=== PATIENT | female | born 1945 | race Caucasian/White ===

== ENCOUNTER 2017-06-29 03:27 | Emergency (ER) | payer MEDICARE, OTHER ==
[~2017-06-29] VITALS: Ht 165.1 cm; Wt 70.3 kg
[~2017-06-29 03:27] MED LIST: METF500 PO
[2017-06-29] MEDS ORDERED: METF500 PO (03:52)
== END 2017-06-29 04:20 | disposition home or self-care (01) ==
LOC: ER 03:27
DX: L03.113 Cellulitis of right upper limb (principal); Z79.84 Long term (current) use of oral hypoglycemic drugs; E11.9 Type 2 diabetes mellitus without complications
CPT/HCPCS: 99282

== ENCOUNTER 2020-11-17 17:51 | Emergency (ER) | payer MEDICARE, OTHER ==
[~2020-11-17] VITALS: Ht 165.1 cm; Wt 65.3 kg
[2020-11-17] MEDS ORDERED: CEPH500 PO (20:25)
== END 2020-11-17 20:33 | disposition home or self-care (01) ==
LOC: ER 17:51
DX: L02.01 Cutaneous abscess of face (principal); E11.9 Type 2 diabetes mellitus without complications; Z79.84 Long term (current) use of oral hypoglycemic drugs
CPT/HCPCS: 99282; A9270

== ENCOUNTER → 2021-02-05 | Outpatient (CLI) | payer MEDICARE, OTHER ==
[~2021-02-05] MED LIST changes: +CEPH500 PO
== END ==
LOC: LAB SHORT 14:30
DX: A49.9 Bacterial infection, unspecified (principal)
CPT/HCPCS: 87070; 87205

== ENCOUNTER 2023-02-19 18:28 | Emergency (ER) | payer OTHER ==
[~2023-02-19] VITALS: Ht 160 cm; Wt 65.8 kg
[2023-02-19 18:31] VITALS: BP 163/94
== END 2023-02-19 18:36 | disposition home or self-care (01) ==
LOC: ER 18:28
DX: S51.801A Unspecified open wound of right forearm, initial encounter (principal); E11.9 Type 2 diabetes mellitus without complications; Z79.84 Long term (current) use of oral hypoglycemic drugs; Z79.899 Other long term (current) drug therapy; X58.XXXA Exposure to other specified factors, initial encounter
CPT/HCPCS: 99282

== ENCOUNTER 2023-07-02 09:00 | Day surgery (SDC) | payer MEDICARE, OTHER ==
[~2023-07-02] VITALS: Ht 165.1 cm; Wt 70.3 kg
[2023-07-02] VITALS (13 sets, daily range): BP systolic 121–180; BP diastolic 61–137
[~2023-07-02 09:00] MED LIST changes: +INSULANI SC
[2023-07-02] MEDS ORDERED: NS 250 ML IV ONE (12:10)
[2023-07-02] MEDS ORDERED: Midazolam HCl 1MG / ML 2ML Vial ONE (12:10)
[2023-07-02] MEDS ORDERED: NS 2,000 ML IV ONE (12:10)
[2023-07-02] MEDS ORDERED: FentaNYL Citrate 50 MCG/ML 2 ML Injection ONE (12:10)
[2023-07-02] MEDS ORDERED: Heparin Sodium 1000 Units/ML 10ML MDV ONE (12:10)
[2023-07-02] MEDS ORDERED: Nitroglycerin 2 MG/20 ML BTL ONE (12:11)
[2023-07-02] MEDS ORDERED: HydrALAZINE HCl 20 MG / ML 1ML Vial ONE (14:08)
--- NOTE | 2023-07-02 14:30 | NUR ---
PATIENT ARRIVED TO RECOVERY ROOM WITH HOB FLAT. L GROIN SITE C/D/I SOFT/NONTENDER, NO EVIDENCE OF BLEEDING. VSS ON RA.
--- NOTE | 2023-07-02 15:12 | NUR ---
HOB ELEVATED 30 DEGREES. L GROIN SITE C/D/I SOFT/NONTENDER, NO EVIDENCE OF BLEEDING. PATIENT VOIDING USING PUREWICK. VSS ON RA
--- NOTE | 2023-07-02 15:13 | NUR ---
PATIENTS PREFERRED PHAMRACY CALLED WITH NEW PRESCRIPTION
[2023-07-02] MEDS ORDERED: CLOP75 PO (15:16)
--- NOTE | 2023-07-02 15:51 | NUR ---
PATIENT SITTING UP IN BED, TOLERATING PO INTAKE WELL. VSS ON RA. L GROIN SITE C/D/I SOFT/NONTENDER.
--- NOTE | 2023-07-02 17:10 | NUR ---
PT GIVEN DC INSTRUCTIONS AND VERBALIZED UNDERSTANDING. IV OUT. PT CHANGED. GROIN SITE SOFT AND NON-TENDER PER PT. NO BLEEDING NOTED. PT TAKEN TO [facility] VIA WC WHERE BROTHER PARKED WAITING TO TAKE PT HOME.
== END 2023-07-02 16:00 | disposition home or self-care (01) ==
LOC: MHTC 09:00
PROC: 047T3ZZ Dilation of Right Peroneal Artery, Percutaneous Approach (ICD-10-PCS; principal; 2023-07-02)
PROC: 047P3ZZ Dilation of Right Anterior Tibial Artery, Percutaneous Approach (ICD-10-PCS; principal; 2023-07-02)
PROC: 047M3ZZ Dilation of Right Popliteal Artery, Percutaneous Approach (ICD-10-PCS; principal; 2023-07-02)
DX: E11.51 Type 2 diabetes mellitus with diabetic peripheral angiopathy without gangrene (principal); E78.5 Hyperlipidemia, unspecified; E11.40 Type 2 diabetes mellitus with diabetic neuropathy, unspecified; Z79.4 Long term (current) use of insulin; Z79.84 Long term (current) use of oral hypoglycemic drugs; M19.90 Unspecified osteoarthritis, unspecified site
CPT/HCPCS: 37224; 37228; 37232; 75625; 75716; 75774; 76937; 99152; 99153; C1725; C1760; C1769; C1887; C1894; J0360; J1644; J2250; J3010; J7030; J7050; Q9967

== ENCOUNTER 2023-12-17 10:55 | Day surgery (SDC) | payer MEDICARE, OTHER ==
[~2023-12-17] VITALS: Ht 165.1 cm; Wt 69.7 kg
[~2023-12-17 10:55] MED LIST changes: +Balanced Salt Epinephrine Irrigation Solution 500 mL IR SCH; +CLOP75 PO; +Lidocaine HCl/Pf 1% 5 ML VIAL XX SCH; +Moxifloxacin HCL 0.5 MG/0.1 ML 0.4MLSYR LEFTEYE SCH; +NS 500 ML IV ONE; +PHENYLEPHRINE\\TROPICAMIDE\\TETRACAINE OPHTHALMIC DILATING SOLN LEFTEYE PRN; +Povidone-Iodine 450 DROP/30 ML Solution LEFTEYE SCH; +Povidone-Iodine 450 DROP/30 ML Solution ONE; +Tetracaine HCl/Pf 0.5% Opth Soln 4 ml ONE; +Triamcinolone Inj Susp 40 MG / ML 1ML Vial INJ SCH; +Triamcinolone Inj Susp 40 MG / ML 1ML Vial ONE
[2023-12-17] MEDS ORDERED: NS 500 ML IV ONE (11:25)
[2023-12-17] MEDS ORDERED: Midazolam HCl 1MG / ML 2ML Vial ONE (11:38)
[2023-12-17] MEDS ORDERED: Ondansetron HCl 2 MG / ML 2ML Vial ONE (11:38)
[2023-12-17] MEDS ORDERED: FentaNYL Citrate 50 MCG/ML 2 ML Injection ONE (11:39)
[2023-12-17 12:17] VITALS: BP 142/84
--- NOTE | 2023-12-17 12:25 | NUR ---
12/17/[address] IN AT BEDSIDE. DISCUSSING CASE AND POSSIBLE BRUISING TO BE EXPECTED IN [place]
== END 2023-12-17 12:45 | disposition home or self-care (01) ==
LOC: ORSCSDS 10:55
PROVIDERS: Ophthalmology
PROC: 08RK3JZ Replacement of Left Lens with Synthetic Substitute, Percutaneous Approach (ICD-10-PCS; principal; 2023-12-17 12:00)
DX: E11.36 Type 2 diabetes mellitus with diabetic cataract (principal); H25.812 Combined forms of age-related cataract, left eye; Z96.1 Presence of intraocular lens; H18.513 Endothelial corneal dystrophy, bilateral; I10 Essential (primary) hypertension; Z79.82 Long term (current) use of aspirin; Z79.899 Other long term (current) drug therapy
CPT/HCPCS: 82947; J2250; J2405; J3010; J3301; J7040; V2632

== ENCOUNTER → 2024-04-04 | Outpatient (CLI) | payer MEDICARE, OTHER ==
[~2024-04-04] MED LIST changes: -Balanced Salt Epinephrine Irrigation Solution 500 mL IR SCH; -Lidocaine HCl/Pf 1% 5 ML VIAL XX SCH; -Moxifloxacin HCL 0.5 MG/0.1 ML 0.4MLSYR LEFTEYE SCH; -NS 500 ML IV ONE; -PHENYLEPHRINE\\TROPICAMIDE\\TETRACAINE OPHTHALMIC DILATING SOLN LEFTEYE PRN; -Povidone-Iodine 450 DROP/30 ML Solution LEFTEYE SCH; -Povidone-Iodine 450 DROP/30 ML Solution ONE; -Tetracaine HCl/Pf 0.5% Opth Soln 4 ml ONE; -Triamcinolone Inj Susp 40 MG / ML 1ML Vial INJ SCH; -Triamcinolone Inj Susp 40 MG / ML 1ML Vial ONE
== END ==
LOC: LAB 15:00 → LAB SHORT 15:00
DX: R30.0 Dysuria (principal); R35.0 Frequency of micturition; R10.2 Pelvic and perineal pain
CPT/HCPCS: 87086

== ENCOUNTER → 2024-06-29 | Outpatient (CLI) | payer MEDICARE, OTHER ==
[2024-06-30 20:39] LABS: Creatinine, Urine Random 85.1 mg/dL (27.00-270.00)
[2024-06-30 20:41] LABS: Microalb/Creat Ratio UR, Rand 108.108 mg/g (0.000-30.000)
== END ==
LOC: LAB SHORT 16:30 → LAB 16:30
PROVIDERS: Internal Medicine Endocrinology, Diabetes & Metabolism
DX: E11.65 Type 2 diabetes mellitus with hyperglycemia (principal)
CPT/HCPCS: 82043; 82570

== ENCOUNTER 2024-09-18 21:35 | Inpatient (IN) | payer MEDICARE, OTHER ==
[~2024-09-18] VITALS: Ht 165.1 cm; Wt 73.1 kg
[2024-09-19] MEDS ORDERED: FentaNYL Citrate 50 MCG/ML 2 ML Injection IV PRN ×2 (00:30→23:55)
[2024-09-19 00:35] LABS: BASOPHILS ABSOLUTE AUTO 0.03 K/mm3 (0.00-0.23); BASOPHILS PERCENT AUTO 0 % (0-2); EOSINOPHILS ABSOLUTE AUTO 0.01 K/mm3 (0.00-0.68); EOSINOPHILS PERCENT AUTO 0 % (0-6); Hematocrit 38.4 % (33.0-51.0); Hemoglobin 12.6 g/dL (11.5-16.0); IMMATURE GRAN ABSOLUTE AUTO 0.03 K/mm3 (0.00-0.10); IMMATURE GRAN PERCENT AUTO 0 % (0-1); LYMPHOCYTES ABSOLUTE AUTO 0.35 K/mm3 (0.84-5.20); LYMPHOCYTES PERCENT AUTO 2 % (21-46); MONOCYTES ABSOLUTE AUTO 0.52 K/mm3 (0.16-1.47); MONOCYTES PERCENT AUTO 4 % (4-13); Mean Corpuscular HGB Conc 32.8 g/dL (31.5-36.5); Mean Corpuscular Volume 85 fL (80-100); NEUTROPHILS ABSOLUTE AUTO 13.63 K/mm3 (1.96-9.15); NEUTROPHILS PERCENT AUTO 94 % (41-73); NRBC ABSOLUTE 0.00 K/mm3 (0.00-0.02); NRBC Auto 0.0 /100 WBC (0.0-0.2); Platelet Count 351 K/mm3 (150-400); RDW Coefficient Variation 13.3 % (11.7-14.2); RDW Standard Deviation 41.4 fL (35.1-46.3)
[2024-09-19 00:55] LABS: Alanine Aminotransfer (ALT/SGP 20.0 U/L (12-78); Albumin, Blood 3.7 g/dL (3.4-5.0); Albumin/Globulin Ratio 0.9 (0.8-1.8); Anion Gap 8.0 mmol/L (3-11); Aspartate Aminotrans (AST/SGOT 10.0 U/L (12-37); Bilirubin, Total 0.5 mg/dL (0.1-1.0); Blood Urea Nitrogen 30.0 mg/dL (8-24); CO2, Blood 27.0 mmol/L (21-32); Calcium, Blood 9.0 mg/dL (8.5-10.1); Chloride, Blood 103.0 mmol/L (98-108); Creatinine, Blood 0.95 mg/dL (0.40-1.00); Globulin, Blood 4.1 g/dL (2.2-4.0); Glucose, Blood 360.0 mg/dL (70-99); Potassium, Blood 4.5 mmol/L (3.5-5.5); Sodium, Blood 133.0 mmol/L (136-145); Total Protein, Blood 7.8 g/dL (6.4-8.2)
[2024-09-19] MEDS ORDERED: Insulin Regular 100 UNIT/ML 10ML Vial SC SCH (07:30)
[2024-09-19] MEDS ORDERED: EZET10 PO (07:35)
[2024-09-19] MEDS ORDERED: LISI5 PO (07:35)
[2024-09-19] MEDS ORDERED: Ondansetron HCl 2 MG / ML 2ML Vial IV PRN (12:00)
[2024-09-19] MEDS ORDERED: Morphine Sulfate 4 MG/1 ML Injection IV PRN (12:05)
[2024-09-19 14:04] VITALS: BP 163/77
--- NOTE | 2024-09-19 14:32 | NUR ---
ARRIVAL TO UNIT PATIENT TRANSFERRED TO UNIT AT APPROX 1355. PATIENT ALERT AND ORIENTED X4. COMMUNICATING NEEDS EFFECTIVELY. TRANSFERRED TO BED FROM [facility] VIA SLIDER SHEET. REPORTING 8/ PAIN - RECEIVED 5MG OF OXYCODONE PER EMAR. MD OWEN AT BEDSIDE - ORDER RECEIVED FOR 5-10MG OF OXYCODONE Q4H. ADDITIONAL DOSE OF OXYCODONE AND X1 DOSE OF IV FENTANYL ADMINISTERED PER EMAR. SBP 160s. MAP >65. DENIES CHEST PAIN, PRESSURE. CURRENTLY ON 2L VIA NC, SATs >90%. DENIES SOB. INCENTIVE SPIROMETER AT BEDSIDE - PATIENT EDUCATED ON USE OF DEVICE. LUE IN SLING - CAP REFILL <3 SECONDS, RADIAL PULSE PALPATED. RLE IN SPLINT - CAP REFILL <3 SECONDS. REPORTS CHRONIC NEUROPATHY TO BLE. USES FWW OR CANE AT BASELINE - REPORTS MULTIPLE FALLS AT HOME. PW AND ATTENDS IN PLACE FOR EPISODES OF URINARY INCONTINENCE. CALL LIGHT IN REACH.
[2024-09-19 16:09] VITALS: BP 131/68
--- NOTE | 2024-09-19 17:12 | NUR ---
SHIFT SUMMARY NO ACUTE CHANGES SINCE ARRIVAL TO UNIT NOTE. VSS. REMAINS ON 2L VIA NC - SATs >90%. INCENTIVE SPIROMETER AT BEDSIDE. DENIES SOB. HTN IMPROVED - SBP 130s. DENIES CHEST PAIN, PRESSURE. L HUMERAL FX REMAINS IN SLING - PAIN IMPROVED PER EMAR. RLE IN SPLINT - MD HEIN AT BEDSIDE THIS AFTERNOON. PLAN FOR SURGICAL INTERVENTION TOMORROW - NPO AT MIDNIGHT. PW IN PLACE. TOLERATING PO INTAKE. CALL LIGHT IN REACH.
[2024-09-19 19:33] VITALS: BP 141/67
[2024-09-19] MEDS ORDERED: Insulin Glargine-Yfgn 100 Unit/mL 3 ML SYR SC SCH (21:00)
[2024-09-20] VITALS (15 sets, daily range): BP systolic 133–190; BP diastolic 66–102
--- NOTE | 2024-09-20 05:38 | NUR ---
DEVELOPMENT WRITER SUMMARY PT AAOX4 AND PLEASANT. L ARM IN SLING WITH RLE IN SPLINT AND KIMBERLEY WRAP. PT ABLE TO WIGGLE TOES AND SENSATION TO RLE INTACT. NPO SINCE MIDNIGHT IN PREP FOR SURGERY TO RLE. PT MEDICATED WITH OXYCODONE FOR PAIN TO HER L SHOULDER/ARM WHICH SHE STATES MOST OF HER PAIN IS OCCURING. THIS MORNING PT CHANGED INTO A HOSPITAL GOWN AND CHG BATH COMPLETED. PUREWICK EXTERNAL URINE CATHETER IN PLACE AND CHANGED THIS MORNING WELL. LELE, LUIS CARLOS.
[2024-09-20 06:44] LABS: BASOPHILS ABSOLUTE AUTO 0.02 K/mm3 (0.00-0.23); BASOPHILS PERCENT AUTO 0 % (0-2); EOSINOPHILS ABSOLUTE AUTO 0.26 K/mm3 (0.00-0.68); EOSINOPHILS PERCENT AUTO 3 % (0-6); Hematocrit 31.6 % (33.0-51.0); Hemoglobin 10.1 g/dL (11.5-16.0); IMMATURE GRAN ABSOLUTE AUTO 0.04 K/mm3 (0.00-0.10); IMMATURE GRAN PERCENT AUTO 0 % (0-1); LYMPHOCYTES ABSOLUTE AUTO 0.46 K/mm3 (0.84-5.20); LYMPHOCYTES PERCENT AUTO 4 % (21-46); MONOCYTES ABSOLUTE AUTO 0.89 K/mm3 (0.16-1.47); MONOCYTES PERCENT AUTO 8 % (4-13); Mean Corpuscular HGB Conc 32.0 g/dL (31.5-36.5); Mean Corpuscular Volume 88 fL (80-100); NEUTROPHILS ABSOLUTE AUTO 8.93 K/mm3 (1.96-9.15); NEUTROPHILS PERCENT AUTO 84 % (41-73); NRBC ABSOLUTE 0.00 K/mm3 (0.00-0.02); NRBC Auto 0.0 /100 WBC (0.0-0.2); Platelet Count 250 K/mm3 (150-400); RDW Coefficient Variation 13.3 % (11.7-14.2); RDW Standard Deviation 42.9 fL (35.1-46.3)
[2024-09-20 07:08] LABS: Alanine Aminotransfer (ALT/SGP 13.0 U/L (12-78); Albumin, Blood 2.7 g/dL (3.4-5.0); Albumin/Globulin Ratio 0.8 (0.8-1.8); Anion Gap 9.0 mmol/L (3-11); Aspartate Aminotrans (AST/SGOT 11.0 U/L (12-37); Bilirubin, Total 0.9 mg/dL (0.1-1.0); Blood Urea Nitrogen 26.0 mg/dL (8-24); CO2, Blood 27.0 mmol/L (21-32); Calcium, Blood 8.7 mg/dL (8.5-10.1); Chloride, Blood 101.0 mmol/L (98-108); Creatinine, Blood 0.9 mg/dL (0.40-1.00); Globulin, Blood 3.3 g/dL (2.2-4.0); Glucose, Blood 186.0 mg/dL (70-99); Potassium, Blood 4.0 mmol/L (3.5-5.5); Sodium, Blood 133.0 mmol/L (136-145); Total Protein, Blood 6.0 g/dL (6.4-8.2)
[2024-09-20] MEDS ORDERED: Bupivacaine 0.5% HCl 5 MG/ML 30MLVIAL ONE (13:45)
[2024-09-20] MEDS ORDERED: Dexamethasone Sod Phos 10 MG/ML 1ML VIAL ONE (14:31)
[2024-09-20] MEDS ORDERED: Ondansetron HCl 2 MG / ML 2ML Vial ONE (14:31)
[2024-09-20] MEDS ORDERED: Midazolam HCl 1MG / ML 2ML Vial ONE (14:32)
[2024-09-20] MEDS ORDERED: Bupivacaine HCl 0.25% 30 ML Injection ONE (14:32)
--- NOTE | 2024-09-20 14:37 | NUR ---
PATIENT TRANSFERRED OFF UNIT FOR PROCEDURE VIA GURNEY
[2024-09-20] MEDS ORDERED: CeFAZolin Sodium 2,000 MG in NS 100 ML IV SCH (14:45)
--- NOTE | 2024-09-20 15:00 | NUR ---
ASSUMED CARE OF PT AT 1500, BRIEF REPORT FROM GERRY RDZ. DR MCKEON AT BEDSIDE TO PERFORM NERVE BLOCKS IN PREOP. PT TOO PAINFUL FOR CHLORHEXADINE PREOP OR PAS. COULD NOT GET PT RINGS OFF, TAPED X2, OR NOTIFIED.
--- NOTE | 2024-09-20 15:02 | NUR ---
PT HAS 20G IV TO RIGHT FOREARM THAT FLUSHES WELL AND FLOWS TO GRAVITY.
[2024-09-20] MEDS ORDERED: Bupivacaine 0.5% W/EPI 1:200000 SDV 30 ML Vial ONE (15:08)
--- NOTE | 2024-09-20 15:17 | NUR ---
1500: DR MCKEON AT BEDSIDE TO PERFORM ADDUCTOR AND POPLITEAL NERVE BLOCKS IN PREOP. TIMEOUT COMPLETE BY RN. PREMEDS GIVEN BY DR MCKEON. SEE ANESTHESIA NOTES. 1503: ADDUCTOR BLOCK START TIME. 1507: ADDUCTOR BLOCK END TIME. 1513: POPLITEAL BLOCK START TIME. 1516: POPLITEAL BLOCK END TIME. PT ON CONTINUOUS PULSE OX/BP THROUGHOUT PROCEDURE. VSS THROUGHOUT PROCEDURE. PT FRITZ PROCEDURE WELL.
[2024-09-20] MEDS ORDERED: FentaNYL Citrate 50 MCG/ML 2 ML Injection ONE (15:30)
[2024-09-20] MEDS ORDERED: ePHEDrine Sulfate 50 MG/ML 1ML Injection ONE (15:36)
--- NOTE | 2024-09-20 15:50 | NUR ---
PT RING ON OPERATIVE SIDE REMOVED IN OR PER OR REQUEST. RING TAKEN TO PT PERSONAL ROOM 217 AND PLACED IN HER PURSE ON HER BEDSIDE TABLE FOR SAFEKEEPING.
--- NOTE | 2024-09-20 15:54 | NUR ---
SHIFT SUMMARY PATIENT REMAINS OFF UNIT FOR PROCEDURE. NO ACUTE EVENTS PRIOR TO TRANSFER. PATIENT RESTING T/O DAY - EASILY AROUSABLE WITH VERBAL STIMULI. PAIN MANAGED PER EMAR W/ REPORTED RELIEF. VSS. REMAINS ON 2L VIA NC - SATs >90%. ENCOURAGING USE OF INCENTIVE SPIROMETER TOLERATED. SURGICAL CONSULT IN PLACE FOR POSSIBLE REPAIR OF L SHOULDER FX - LUE IN SLING. CAP REFILL <3 SECONDS, RADIAL PULSE PALPATED. RLE IN SPLINT PRIOR TO PROCEDURE - ABLE TO WIGGLE TOES, CAP REFILL <[address] PW IN PL[address] FOR URGENCY - VOIDING. REPORT GIVEN TO MATI RDZ TO ASSUME CARE AT THIS TIME.
[2024-09-20] MEDS ORDERED: HYDROmorphone HCl/Pf 1MG SYR IV PRN ×2 (16:05)
[2024-09-20] MEDS ORDERED: Ondansetron HCl 2 MG / ML 2ML Vial IV PRN (16:10)
[2024-09-20] MEDS ORDERED: HydrALAZINE HCl 20 MG / ML 1ML Vial IV PRN (16:10)
[2024-09-20] MEDS ORDERED: FentaNYL Citrate 50 MCG/ML 2 ML Injection IV PRN ×2 (16:10)
--- NOTE | 2024-09-20 16:58 | NUR ---
09/20/24 4132 SHANTELL ELIZABETH PRE/POST RN CAME TO OR TO REMOVE PATIENT'S RING ON LEFT HAND DUE TO CONCERNS FOR EDEMA PRIOR TO LUE PROCEDURE. SMALL SKIN TEAR WITH MINIMAL BLEEDING NOTED BY CENTER HOLE REAMER RN.
--- NOTE | 2024-09-20 17:48 | NUR ---
ARRIVAL PT ARRIVED TO UNIT S/P ORIF R ANKLE PT DENIES PAIN AT REST, SOME PAIN WITH MOVEMENT. CAP REFILL <3, WIGGLES TOES WELL. PUREWICK PLACED FOR COMFORT. PT RESTING IN BED, DENIES APPETITE. PLANS TO REST AT THIS TIME. L SHOULDER IN SLING. PT ON 2L NASAL CANULA WHILE RESTING.
[2024-09-21 00:04] VITALS: BP 128/70
[2024-09-21 03:57] VITALS: BP 159/84
--- NOTE | 2024-09-21 05:29 | NUR ---
SHIFT SUMMARY PT POD 0 S/P R ORIF, R LEG SPLINTED. PT DOES NOT REPORT PAIN IN HER R LEG, PT DOES REPORT PAIN IN HER LEFT SHOULDER RELATED TO FX. PAIN MANAGED PER EMAR. LEFT ARM IS IN SLING. PT REPORTS NEUROPATHY IN FEET AT BASELINE, TOES ARE WARM TO TOUCH. R LEG ELEVATED ON PILLOW. POST OP VITALS STABLE. PT TOLERATING PO INTAKE AND IS VOIDING. PT AWAITING ANOTHER SURGICAL CONSULT FOR LEFT SHOULDER. PLAN OF CARE REMAINS UNCHANGED. BED IN LOWEST POSITION, CALL LIGHT WITHIN REACH.
[2024-09-21 05:36] LABS: BASOPHILS ABSOLUTE AUTO 0.01 K/mm3 (0.00-0.23); BASOPHILS PERCENT AUTO 0 % (0-2); EOSINOPHILS ABSOLUTE AUTO 0.00 K/mm3 (0.00-0.68); EOSINOPHILS PERCENT AUTO 0 % (0-6); Hematocrit 29.3 % (33.0-51.0); Hemoglobin 9.6 g/dL (11.5-16.0); IMMATURE GRAN ABSOLUTE AUTO 0.06 K/mm3 (0.00-0.10); IMMATURE GRAN PERCENT AUTO 1 % (0-1); LYMPHOCYTES ABSOLUTE AUTO 0.32 K/mm3 (0.84-5.20); LYMPHOCYTES PERCENT AUTO 4 % (21-46); MONOCYTES ABSOLUTE AUTO 0.44 K/mm3 (0.16-1.47); MONOCYTES PERCENT AUTO 5 % (4-13); Mean Corpuscular HGB Conc 32.8 g/dL (31.5-36.5); Mean Corpuscular Volume 86 fL (80-100); NEUTROPHILS ABSOLUTE AUTO 8.39 K/mm3 (1.96-9.15); NEUTROPHILS PERCENT AUTO 91 % (41-73); NRBC ABSOLUTE 0.00 K/mm3 (0.00-0.02); NRBC Auto 0.0 /100 WBC (0.0-0.2); Platelet Count 227 K/mm3 (150-400); RDW Coefficient Variation 13.1 % (11.7-14.2); RDW Standard Deviation 40.7 fL (35.1-46.3)
[2024-09-21 06:23] LABS: Anion Gap 8.0 mmol/L (3-11); Blood Urea Nitrogen 34.0 mg/dL (8-24); CO2, Blood 26.0 mmol/L (21-32); Calcium, Blood 8.4 mg/dL (8.5-10.1); Chloride, Blood 102.0 mmol/L (98-108); Creatinine, Blood 0.92 mg/dL (0.40-1.00); Glucose, Blood 314.0 mg/dL (70-99); Potassium, Blood 4.3 mmol/L (3.5-5.5); Sodium, Blood 132.0 mmol/L (136-145)
[2024-09-21 07:10] VITALS: BP 156/79
[2024-09-21] MEDS ORDERED: Cholecalciferol 1000 Unit Tablet (=25MCG) PO SCH (09:00)
[2024-09-21] MEDS ORDERED: Insulin Glargine-Yfgn 100 Unit/mL 3 ML SYR SC SCH ×2 (12:00→21:00)
--- NOTE | 2024-09-21 13:21 | NUR ---
SHOULDER STATUS PER DR LORD, NONSURGICAL L SHOULDER - OUTPATIENT FOLLOWUP WITH A SLING.
--- NOTE | 2024-09-21 13:47 | NUR ---
Pt. is awake and welcomes my visit. Pt. recognizes this junior architect from the community. Facilitated a life review. Listen with interest and empathy as Pt. verbalizes her life journey since her passed. Consder matters of devyn and belief. Pt. verbalizes she hasn't been able to tenriism at [facility] since her health has been in decline. Seek to normalize the Pt. experience. Pt. had another visitor (also known to this junior architect)> Prayed with Pt. Pt. did display some evidence of being [place] but verbalized gratitude for the spiritual care visit.
[2024-09-21 16:18] VITALS: BP 116/65
[2024-09-21] MEDS ORDERED: MetFORMIN HCl 500 mg PO SCH (17:00)
--- NOTE | 2024-09-21 17:50 | NUR ---
SUMMARY PT AXO4 THIS SHIFT - ASIDE FROM OCCASIONAL FORGETFULNESS. VSS. PUREWICK IN PLACE. PT ON STRICT BEDREST CURRENTLY PER DR HEIN DUE TO R ANKLE ORIF, SPLINT/DRESSING CDI. L SHOULDER REMAINS IN SLING PER ORDERS. PT TOLERATING PO INTAKE WELL. BLOOD SUGARS REMAIN DIFFICULT TO KEEP <300 - NEW INSULIN ORDERS PLACED ALONG WITH METFORMIN. PT REPOSITIONING SELF IN BED ALONG WITH STAFF ASSISTANCE. PT TO PROBABLY NEED SNF DC PER PHYSICAL THERAPY AND PHYSICIANS. OTHERWISE, PT RESTING OFF AND ON, USING CALL LIGHT EEDED.
[2024-09-21 19:48] VITALS: BP 107/62
[2024-09-22 03:25] VITALS: BP 149/72
--- NOTE | 2024-09-22 06:18 | NUR ---
SHIFT SUMMARY PT HAS RESTED T/O THE NIGHT. PT REPORTS THAT THE PAIN IS ALOT BETTER IN HER LEFT SHOULDER. PT DENIES NEEDS DURING ROUNDS. SURGICAL SITE WNL, VITALS STABLE. PUREWICK IN PLACE, PAITENT VOIDNG. PUREWICK HAS LEAKED, REQUIERING LINEN AND ATTEND CHANGES. PLAN OF CARE REMAINS UNCHANGED. BED IN LOWEST POSITION, CALL LIGHT WITHIN REACH.
[2024-09-22 07:19] VITALS: BP 123/63
--- NOTE | 2024-09-22 13:56 | NUR ---
SUMMARY ASSUMED CARE OF PT @0700. AXO4. L ARM IN SLING. R ARM IN BOOT/KIMBERLEY WRAP. PT C/O PAIN TO BOTH AREAS BUT TOLERABLE PER PT - PAIN MEDS PER EMAR. DRESSING TO R LEG CDI. PURE WICK IN PLACE, WORKING WELL, REMAINS INCONTINENT. BLOOD SUGARS STABLE TODAY, MUCH IMPROVED FROM YESTERDAY. TOLERATING MEALS WELL. TOLERATING PO LIQUIDS WELL. PHYSICIAN SAW PT TODAY, PLAN FOR DC TO [facility] PLAN FOR TRANSPORTATION @1400. IV PULLED. PT CLEANED. BRIEFS CHANGED AND PT EDUCATED @4075 IN PREPARATION. PT FAMILY IN ROOM, AWARE OF PENDING TRANSFER.
--- NOTE | 2024-09-22 14:48 | NUR ---
DC'D AT 1440 DC INSTRCTIONS PROVIDED. POST DUMMSRY NOTE. NO ACUTE CHANGES. REPORT CALLED TO [facility]. PT LIFTED TO WHEELCHAIR VIA LIFT. REMAINS ON WHEELCHAIR. WHEELED OUT OF FACILITY WITH [facility] AT 1440. PT WITH 3 RINGS, PLACED IN PURSE WITH PT PRESENT.
== END 2024-09-22 14:38 | DRG 493 ==
LOC: ER 21:35 → ERHOLD 09-19 11:59 → SURS 09-19 11:59
PROVIDERS: Emergency Medicine; Podiatrist Foot & Ankle Surgery; ADMIT Internal Medicine
PROC: 0QSG04Z Reposition Right Tibia with Internal Fixation Device, Open Approach (ICD-10-PCS; 2024-09-20)
PROC: 0QSJ04Z Reposition Right Fibula with Internal Fixation Device, Open Approach (ICD-10-PCS; principal; 2024-09-20 15:00)
DX: S82.851A Displaced trimalleolar fracture of right lower leg, initial encounter for closed fracture (principal); D62 Acute posthemorrhagic anemia; S42.202A Unspecified fracture of upper end of left humerus, initial encounter for closed fracture; I10 Essential (primary) hypertension; E78.5 Hyperlipidemia, unspecified; E11.65 Type 2 diabetes mellitus with hyperglycemia; D72.829 Elevated white blood cell count, unspecified; W01.0XXA Fall on same level from slipping, tripping and stumbling without subsequent striking against object, initial encounter; Z60.2 Problems related to living alone; Y92.008 Other place in unspecified non-institutional (private) residence as the place of occurrence of the external cause; Z79.84 Long term (current) use of oral hypoglycemic drugs; Z79.4 Long term (current) use of insulin
CPT/HCPCS: 29515; 36415; 73030; 73600; 73610; 80048; 80053; 82947; 85025; 94760; 96374-59; 96376-59; 97110; 97161; 97530; 99285-25; A6253; A6590; A9270; C1713; J0690; J1100; J1815; J2250; J2270; J2405; J2704; J3010; J7120